=== PATIENT | female | born 1960 | race Two or more races ===

== ENCOUNTER 2019-04-25 09:34 | Outpatient (CLI) | payer OTHER | END 2019-04-25 10:07 | disposition home or self-care (01) | LOC: SONOGRAMA 09:34 | DX: E04.2 Nontoxic multinodular goiter (principal) ==

== ENCOUNTER 2020-05-31 11:34 | Outpatient (CLI) | payer OTHER | END 2020-05-31 11:42 | disposition home or self-care (01) | LOC: SONOGRAMA 11:34 | PROVIDERS: ATTEND Pathology Anatomic Pathology | DX: E04.2 Nontoxic multinodular goiter (principal) ==

== ENCOUNTER 2021-08-08 11:20 | Outpatient (CLI) | payer OTHER | END 2021-08-08 11:35 | disposition home or self-care (01) | LOC: PPH VACUNA 11:20 | PROVIDERS: ATTEND Emergency Medicine Pediatric Emergency Medicine | DX: Z23 Encounter for immunization (principal) ==

== ENCOUNTER 2021-12-05 11:25 | Outpatient (CLI) | payer OTHER | END 2021-12-05 11:29 | disposition home or self-care (01) | LOC: SONOGRAMA 11:25 | PROVIDERS: ATTEND Pathology Anatomic Pathology & Clinical Pathology | DX: E04.2 Nontoxic multinodular goiter (principal) ==

== ENCOUNTER → 2022-02-14 | Outpatient (CLI) | payer OTHER | END | disposition home or self-care (01) | LOC: PPH VACUNA 14:00 | PROVIDERS: ATTEND Emergency Medicine Pediatric Emergency Medicine | DX: Z23 Encounter for immunization (principal) ==

== ENCOUNTER 2022-07-10 10:35 | Outpatient (CLI) | payer OTHER | END 2022-07-10 10:37 | disposition home or self-care (01) | LOC: SONOGRAMA 10:35 | PROVIDERS: ATTEND Pathology Anatomic Pathology & Clinical Pathology | DX: E04.2 Nontoxic multinodular goiter (principal) ==

== ENCOUNTER 2022-11-05 10:57 | Outpatient (CLI) | payer OTHER | END 2022-11-05 11:03 | disposition home or self-care (01) | LOC: MAMO-SONO 10:57 | PROVIDERS: ATTEND General Practice | DX: Z12.39 Encounter for other screening for malignant neoplasm of breast (principal) ==

== ENCOUNTER 2023-09-17 10:42 | Outpatient (CLI) | payer OTHER | END 2023-09-17 10:43 | disposition home or self-care (01) | LOC: NUCLEAR 10:42 | DX: Z13.820 Encounter for screening for osteoporosis (principal); M85.89 Other specified disorders of bone density and structure, multiple sites ==

== ENCOUNTER 2023-09-17 11:46 | Outpatient (CLI) | payer OTHER | END 2023-09-17 13:44 | disposition home or self-care (01) | LOC: SONOGRAMA 11:46 | PROVIDERS: ATTEND General Practice | DX: E04.2 Nontoxic multinodular goiter (principal); E11.40 Type 2 diabetes mellitus with diabetic neuropathy, unspecified; R59.0 Localized enlarged lymph nodes ==

== ENCOUNTER 2023-11-09 10:43 | Outpatient (CLI) | payer OTHER | END 2023-11-09 10:44 | disposition home or self-care (01) | LOC: MAMO-SONO 10:43 | PROVIDERS: ATTEND General Practice | DX: Z12.39 Encounter for other screening for malignant neoplasm of breast (principal) ==

== ENCOUNTER 2024-04-11 11:22 | Outpatient (CLI) | payer OTHER | END 2024-04-11 11:25 | disposition home or self-care (01) | LOC: SONOGRAMA 11:22 | PROVIDERS: ATTEND Pathology Anatomic Pathology & Clinical Pathology | DX: D34 Benign neoplasm of thyroid gland (principal); E07.89 Other specified disorders of thyroid; E04.2 Nontoxic multinodular goiter ==

== ENCOUNTER 2024-07-12 10:48 | Outpatient (CLI) | payer OTHER | END 2024-07-12 10:55 | disposition home or self-care (01) | LOC: SONOGRAMA 10:48 | PROVIDERS: ATTEND Internal Medicine Endocrinology, Diabetes & Metabolism | DX: E04.2 Nontoxic multinodular goiter (principal); R59.0 Localized enlarged lymph nodes ==

== ENCOUNTER 2024-11-15 10:53 | Outpatient (CLI) | payer OTHER | END 2024-11-15 11:02 | disposition home or self-care (01) | LOC: MAMO-SONO 10:53 | PROVIDERS: ATTEND Surgery | DX: N63.11 Unspecified lump in the right breast, upper outer quadrant (principal); Z12.31 Encounter for screening mammogram for malignant neoplasm of breast ==

== ENCOUNTER → 2025-04-11 | Outpatient (CLI) | payer OTHER | END | disposition home or self-care (01) | LOC: RAD 14:02 | PROVIDERS: ATTEND Family Medicine | DX: J44.9 Chronic obstructive pulmonary disease, unspecified (principal); F17.200 Nicotine dependence, unspecified, uncomplicated; G89.11 Acute pain due to trauma; M25.541 Pain in joints of right hand ==

== ENCOUNTER → 2025-07-27 | Outpatient (CLI) | payer OTHER | END | disposition home or self-care (01) | LOC: SONOGRAMA 15:22 | PROVIDERS: ATTEND Internal Medicine Endocrinology, Diabetes & Metabolism | DX: E04.2 Nontoxic multinodular goiter (principal); R59.0 Localized enlarged lymph nodes ==

== ENCOUNTER 2025-09-19 08:39 | Outpatient (CLI) | payer OTHER | END 2025-09-19 08:43 | disposition home or self-care (01) | LOC: NUCLEAR 08:39 | PROVIDERS: ATTEND Internal Medicine Endocrinology, Diabetes & Metabolism | DX: I63.9 Cerebral infarction, unspecified (principal) ==

== ENCOUNTER → 2025-09-26 08:14 | Outpatient (CLI) | payer OTHER | END | disposition home or self-care (01) | LOC: NUCLEAR 08:14 | PROVIDERS: ATTEND Internal Medicine Endocrinology, Diabetes & Metabolism | DX: I87.2 Venous insufficiency (chronic) (peripheral) (principal) ==